=== PATIENT | male | born 1955 | race Caucasian/White ===

== ENCOUNTER 2016-06-29 08:18 | Day surgery (SDC) | payer OTHER ==
[~2016-06-29 08:18] MED LIST: Lactated Ringers 1,000 ML IV SCH
[2016-06-29] MEDS ORDERED: Midazolam 1 MG/ML 2 ML SDV IV ONE (11:30)
[2016-06-29] MEDS ORDERED: Lidocaine 2% 100 MG/5 ML Syringe IVPUSH ONE (11:30)
[2016-06-29] MEDS ORDERED: Propofol 200 MG/20 ML SDV IV ONE (11:30)
--- NOTE | 2016-06-29 11:49 | PCM.OPNOTE ---
- General Post-Op/Procedure Note Date of Surgery/Procedure: 06/29/16 Operative Procedure(s): egd with biopsy Findings: gastroduodenitis esophagitis Pre Op Diagnosis: epigastric abd pain Post-Op Diagnosis: as above Anesthesia Technique: MAC Primary Surgeon: Ernesto Carpenter Anesthesia Provider: Migel Turpin Pathology: duodenum stomach distal esophagus Complications: None Condition: Good Free Text/Narrative:: see dictation
[2016-06-29 12:31] VITALS: BP 122/91
--- NOTE | 2016-06-29 16:51 | OR ---
DATE OF OPERATION: 06/29/2016 SURGEON: Ernesto Carpenter MD PROCEDURE PERFORMED: Esophagogastroduodenoscopy with cold forceps biopsy. PREOPERATIVE DIAGNOSIS: Epigastric pain. POSTOPERATIVE DIAGNOSIS: Gastroduodenitis and esophagitis of the distal esophagus. INDICATIONS FOR PROCEDURE: This is a 60-year-old white male who is referred and seen yesterday in clinic with a complaint of epigastric discomfort. It has been going on for several months. It is relieved by eating. He was offered and accepted an EGD as part of his workup. DESCRIPTION OF OPERATION: After an excellent IV sedation was administered, the bite block was inserted. The flexible endoscope was passed without difficulty down the patient's esophagus and into the stomach. The stomach was insufflated. The scope was passed through the pylorus to the second portion of the duodenum and slowly withdrawn. The following findings were noted: In the first portion of the duodenum, friable mucosa. Multiple biopsies were taken. Stomach did demonstrate some diffuse gastritis. Multiple biopsies were taken. GE junction measured at 40 cm, but there was some marked erythema in this area as well as a little bit of bleeding from scope trauma. Biopsies were taken of this area. The remainder of the esophageal exam was unremarkable. The stomach was deflated. The scope was removed. The patient tolerated the procedure well and was taken to recovery room in good condition. /[id number] /MODL
== END 2016-06-29 12:54 | disposition home or self-care (01) ==
LOC: FB.SDS 08:18
PROVIDERS: ATTEND Surgery
PROC: 0DB98ZX Excision of Duodenum, Via Natural or Artificial Opening Endoscopic, Diagnostic (ICD-10-PCS; principal; 2016-06-29)
PROC: 0DB38ZX Excision of Lower Esophagus, Via Natural or Artificial Opening Endoscopic, Diagnostic (ICD-10-PCS; 2016-06-29)
PROC: 0DB68ZX Excision of Stomach, Via Natural or Artificial Opening Endoscopic, Diagnostic (ICD-10-PCS; 2016-06-29)
DX: K29.90 Gastroduodenitis, unspecified, without bleeding (principal); K21.0 Gastro-esophageal reflux disease with esophagitis; Z79.899 Other long term (current) drug therapy; Z88.8 Allergy status to other drugs, medicaments and biological substances; E78.00 Pure hypercholesterolemia, unspecified; N40.0 Benign prostatic hyperplasia without lower urinary tract symptoms; I10 Essential (primary) hypertension; J45.909 Unspecified asthma, uncomplicated; Z87.891 Personal history of nicotine dependence
CPT/HCPCS: 43239; 88305; 88342; J2250; J2704; J7120